=== PATIENT | male | born 1950 | race Caucasian/White ===

== ENCOUNTER 2018-07-02 13:15 | Inpatient (IN) | payer OTHER ==
[~2018-07-02] VITALS: Ht 185.4 cm; Wt 67.6 kg
[2018-07-02] MEDS ORDERED: APAP650 PO (14:37)
[2018-07-02] MEDS ORDERED: ZYLOPRIM300 MG PO (14:37)
[2018-07-02] MEDS ORDERED: COREG25 MG PO (14:38)
[2018-07-02] MEDS ORDERED: ASPIR 8181 MG PO (14:38)
[2018-07-02] MEDS ORDERED: CLOPIDOGREL75 MG PO (14:39)
[2018-07-02] MEDS ORDERED: VITAMIN D2000 UNIT PO (14:39)
[2018-07-02] MEDS ORDERED: GABAPENTIN 100100 MG PO (14:41)
[2018-07-02] MEDS ORDERED: CLOTRIMAZOLE 1%15 G1 TOP (14:41)
[2018-07-02] MEDS ORDERED: PROBIOTIC1 EAC1 PO (14:42)
[2018-07-02] MEDS ORDERED: SYNTHROID75 MCG PO (14:43)
[2018-07-02] MEDS ORDERED: MIRALAX17 GM PO (14:44)
[2018-07-02] MEDS ORDERED: POTASSIUM20 PO (14:47)
[2018-07-02] MEDS ORDERED: PRAVACHOL20 MG PO (14:51)
[2018-07-02] MEDS ORDERED: PSYLLIUM HUSK1 GM PO (15:01)
[2018-07-02] MEDS ORDERED: ALDACTONE100 MG PO (15:02)
--- NOTE | 2018-07-02 18:55 | NUR ---
PATIENT ALERT AND ORIENTED ARRIVED [facility] UN[facility] HERE FOR [facility].
[2018-07-02 20:10] VITALS: BP 122/60
--- NOTE | 2018-07-03 02:55 | NUR ---
ASSUMED CARE @ 1914-07/02-THURSDAY.AWAKE IN BED W/ HOB UP.JUST FINISHED DINNER @ THIS TIME.DAUGHTER VISITING.WEARING PREVALON BOOT LEFT FOOT @ 1914.BED ALARM PUT ON @ 1914.NO DRSG ON RIGHT AKA STUMP W/ KERLINE ON & DRY.PATIENT CLAIMS DRSG REMOVED BEFORE TRANSFER TO REHAB.USUALLY APPLIES DRSG IN AM.ALSO CLAIMS DOES NOT USE STUMP TAX MANAGER PUBLIC @ NIGHT.WANTS BATHROOM LIGHT ON ALL NIGHT.DEPENDS OFF @ 2014.TEMP @ ORAL.TEMP RE-CHECKED @ .1 ORAL.ON HOURLY ROUNDS.TURNED Q 2 HOURS.AWAKENED TO TURN.
[2018-07-03 04:50] LABS: HEMATOCRIT 27.6 % (42.0-52.0); HEMOGLOBIN 8.9 gm/dL (14.0-18.0); MCH 32.2 pg (26.0-34.0); MCV 100.5 fL (80.0-100.0); MPV 10.7 fl. (7.2-11.1); NUCLEATED RBCS 0 /100WBC; PLATELET COUNT* 229 thou/uL (150-400); RBC 2.75 mil/uL (4.50-6.00); WBC 11.1 thou/uL (4.0-11.0)
--- NOTE | 2018-07-03 05:13 | NUR ---
SLEPT LATE SINCE 2300 & SLEPT GOOD ALL NIGHT.AWAKENED ONLY TO TURN & TO CLEAN IF INC URINE OR INC BM.TOOK ALL ONE PACKAGE GARCIA CRACKERS W/ DIET AILYN MIST HS SNACKS.PHOTO TAKEN COCCYX,DRY SCABS-UPPER,MIDDLE & LOWER PARTS LEFT INNER LEG @ 4324.
[2018-07-03 05:37] LABS: ALBUMIN 2.2 g/dL (3.4-5.0); CALCIUM 8.6 mg/dL (8.5-10.1); CREATININE 0.8 mg/dL (0.6-1.3); POTASSIUM 3.7 mmol/L (3.5-5.1); TOTAL BILIRUBIN 0.4 mg/dL (<0.1-1.0); TOTAL PROTEIN 7.1 g/dL (6.4-8.2)
--- NOTE | 2018-07-03 06:25 | NUR ---
USED URINAL X4.NURSE EMPTIES URINAL @ NIGHT.URINE ACCIDENT X2.INC URINE X1. USED BEDPAN X1-NO BM.INC.BM X6.BOWEL ACCIDENT X4.FOR 07/03-LARGE BM X1/MOD BM X1 & SMALL BM X1.BAYLEE CARE DONE AFTER EACH INC URINE BM X6.FOLLOWED BY MOISTURE BARRIER CREAM TO PINK GROINS,POST.SCROTUM,LEFT BUTTOCK & BAYLEE-RECTAL AREAS X6.
[2018-07-03 06:27] LABS: ABSOLUTE BASOPHILS 0.2 thou/uL (0.0-0.2); ABSOLUTE EOSINOPHILS 0.3 thou/uL (0.0-0.7); ABSOLUTE LYMPHOCYTES 1.8 thou/uL (0.8-5.3); ABSOLUTE MONOCYTES 0.3 thou/uL (0.0-1.2); ABSOLUTE NEUTROPHILS 8.4 thou/uL (1.6-8.1); ANISOCYTOSIS 1+; ATYPICAL LYMPHS 1 %; METAMYELOCYTES 4 %; MYELOCYTES 1 %; PLATELET ESTIMATE ADEQUATE
[2018-07-03 07:54] VITALS: BP 121/66
--- NOTE | 2018-07-03 18:02 | NUR ---
AM ASSESSMENT AND VITAL SIGNS COMPLETED DOCUMENTED. PT HAS BEEN PLEASANT AND COOPERATIVE, WORKED WITH OT, PT AND ST TODAY. PT IS ABLE TO TRANSFER WITH ASSIST OF ONE AND USE OF HIS LEFT LEG. DR CONTRERAS REMOVED THE KERLINE FROM THE RIGHT STUMP AND STUMP SPIRITUAL MINISTER IS IN PLACE. FALL PRECAUTIONS AND HOURLY ROUNDING CONTINUE.
[2018-07-03 20:05] VITALS: BP 119/59
--- NOTE | 2018-07-04 05:19 | NUR ---
ASSUMED PT CARE AT 1930. PT ALERT AND ORIENTED X4, POLITE AND COOPERATIVE WITH CARES. PT SITTING UP IN RECLINER AT SHIFT CHANGE. TRANSFERRED TO BED WITH GAIT BELT AND STAND/PIVOT. PT IS POST R AKA. DENIES PAIN. DRESSING TO R STUMP C/D/I. STUMP VIBRATORY PILE DRIVER IN PLACE. PREVALON BOOT IN PLACE TO LEFT FOOT. PT INCONTINENT OF BOWEL AND BLADDER MANY TIMES OVERNIGHT. STAFF PERFORMED PERICARES, BARRIER CREAM APPLIED TO REDNESS IN BAYLEE AREA. PT TURNED Q2. CALL LIGHT AND FREQUENTLY USED ITEMS WITHIN REACH. BED ALARM ON FOR SAFETY. HOURLY ROUNDING IN PROGRESS, WILL CONTINUE TO MONITOR.
[2018-07-04 07:35] VITALS: BP 107/55
--- NOTE | 2018-07-04 18:13 | NUR ---
PT SLEPT LATE THIS MORNING AND CONTINUED TO BE INCONTINENT OF BOWEL AND BLADDER WHILE SLEEPING. PT TRANSFERRED FROM BED TO WHEELCHAIR WITH GAIT BELT AND MOD ASSIST, NEEDS TO BE TRAINED TO USE SLIDEBOARD FOR SAFETY. PT HAS BEEN PLEASANT AND COOPERATIVE, FRIENDS AND FAMILY HAVE VISITED. PT DENIES PAIN OR DISCOMFORT. FALL PRECAUTIONS AND HOURLY ROUNDING CONTINUE.
[2018-07-04 19:51] VITALS: BP 121/61
--- NOTE | 2018-07-05 02:30 | NUR ---
ASSUMED CARE @ 1923-07/04-THURSDAY.SITS IN W/C WATCHING TV.RIGHT STUMP W/ 4 X 4 GAUZE DRSG.WANTS BATHROOM LIGHT ON ALL NIGHT.TRANSFERED TO BED BY POULTRY VACCINATOR @ 1939. HOB UP.BED ALARM PUT ON @ 1939.LEFT LEG & FOOT- DRY & SCALY.POULTRY VACCINATOR APPLIED MOISTURE Barrier CREAM.WBAT LEFT LE DURING TRANSFER.PREVALON BOOT APPLIED TO LEFT FOOT @ 2119.AWAKENED TO TURN @ 2200,0000 & 0200.ALSO TO CHECK IF INC. URINE & STOOLS DURING TURNING TIMES.GOES BACK TO SLEEP.ON HOURLY ROUNDS.POULTRY VACCINATOR DOING ODD HOUR ROUNDS.
--- NOTE | 2018-07-05 05:24 | NUR ---
SLEPT EARLY SINCE 2044 & SLEEPING GOOD ALL NIGHT.TOOK ALL DIET AILYN MIST HS SNACK.AWAKENED ONLY TO TURN & TO CHECK IF INC URINE & STOOLS.USED URINAL X1.NURSE EMPTIES URINAL.INC URINE X4 W/ URINE ACCIDENTS X4.INC BM X2-SMEAR X1 & SMALL X1.BOWEL ACCIDENT X1.DRY @ 0200-NO URINE & BOWEL INC.BAYLEE CARE DONE X4 AFTER EACH EPISODE OF URINE & BOWEL INC.FOLLOWED W/ MOISTURE BARRIER CREAM TO PINK LEFT BUTTOCK,COCCYX,GROINS & POST.SCROTUM X 4.
[2018-07-05 06:24] VITALS: BP 108/64
--- NOTE | 2018-07-05 06:47 | NUR ---
BP @ 0624-108/64.COREG HELD.
[2018-07-05 07:46] VITALS: BP 117/58
--- NOTE | 2018-07-05 12:26 | NUR ---
Nutrition: Consult for new rehab pt. Pt is thin, BMI 18.3. Admitted s/p Rt AKA. wt: 138#. CHO controlled diet. LLE is scaley and dry. H/o DM, cirrhosis, HTN, afib. Albumin 2.2, prealbumin 23.6. RD will order Glucerna supplement for added protein and kcals. Consider Mild to moderate risk at this time. Will follow up on po intake, supplement intake, wt, labs 07/07/18.
--- NOTE | 2018-07-05 16:15 | NUR ---
SW met with pt to complete initial assessment, introduce self, and SW role. Pt alert, oriented but was not exceptionally clear in answering questions. pt lives at home with his son. SW to call son to follow up as well on specifics of if pt son works and how busy he is. Pt has 2 dtrs. Pt has wc, RW, cane, and hx of HH. SW to continue to follow to assist with safe dc planning.
--- NOTE | 2018-07-05 17:33 | NUR ---
ASSUMMED CARE OF PT AT 0730, PT ALERT AND OREINTED, PT TRANSFERS WITH ASSIST OF 1 GB WITH A SLIDE/PIVOT TRANSFER. BM X1 ON TOILET THIS SHIFT, SCAB AREA ON LEFT LEG INTACT, PT DID HAVE SLIGHT BLOODY NOSE X 1 THIS SHIFT, INCISION TO RIGHT STUMP INTACT AND HEALING, STUMP SMASH HAND ON, PT DENIES PAIN, SCABBED AREA ON LEFT LEG INTACT, SLIGHT REDNESS TO LEFT BUTTOCK, BARRIER OINTMENT APPLIED, REPOSTIONED EVERY 2 HOURS IN CHAIR, STOOD WITH THERAPY, VOIDS PER URINAL, BRIEF ON FOR INCONTINENCE BUT NO INCONTINENCE NOTED THIS SHIFT, PT PARTICIPATED IN ALL THERAPIES, HOURLY ROUNDING COMPLETED, ASSESSMENT COMPLETE, WILL CONTINUE TO MONITOR.
[2018-07-05 20:00] VITALS: BP 135/60
--- NOTE | 2018-07-06 00:54 | NUR ---
ASSUMED CARE AT 1930. PATIENT IN W/C UNTIL AFTER VISITORS LEFT. UP WITH TWO FOR SAFETY, GAIT BELT, SLIDES FROM W/C TO BED. INCONTINENT OF URINE, BUT WAS ABLE TO VOID PER URINAL ONCE DURING POSITION CHANGE. LINENS CHANGED BY NURSE. THOUGHT HE NEEDED TO HAVE BM, BUT AFTER VOIDING STATED HE NO LONGER NEEDED TO HAVE BM. TAKES PILLS WHOLE WITH WATER. INCISION C/D/I. STUMP MARKETING TECHNOLOGY SPECIALIST INTACT. PILLOW BOOT TO LT LEG. BARRIER OINTMENT TO BUTTOCKS. LOTION AND MEDICINE TO LLE. NO C/O PAIN. HOURLY ROUNDS CONTINUE. BED ALARM ON. CALL LITE IN REACH.
--- NOTE | 2018-07-06 05:42 | NUR ---
SLEPT AFTER HS EXCEPT WHEN AWAKENED FOR TURNS AND OFFERING URINAL. WAS CONTINENT AT 0000, 0200, AND 0400. OFFERED URINAL BEFORE TURNING. NO C/O PAIN. TURNED Q2H. STUMP EDUCATIONAL PSYCHOLOGY PROFESSOR INTACT, INCISION C/D/I. HOURLY ROUNDS CONTINUE. BED ALARM ON. CALL LITE IN REACH.
[2018-07-06 06:21] VITALS: BP 109/54
[2018-07-06 08:00] VITALS: BP 105/59
--- NOTE | 2018-07-06 16:05 | NUR ---
ASSUMMED CARE OF PT AT 0730, PT ALERT AND ORIENTED, TRANSFERS WITH ASSIST OF 1, GB WITH A SLIDE SITTING PIVOT, TAKING FOOD AND FLUIDS WELL, HAD SEVERAL SMALL/MODERATE NOSEBLEEDS THIS AM, ICE PACK APPLIED, PHYSICIAN INFORMED , MEDICATION ORDERED AND SPRAY INSERTED INTO NON BLEEDING NOSTRIL, STOPPED NOSEBLEED AND NO FURTHER BLEEDING THIS SHIFT, INCISION TO RIGHT STUMP C/D/I, STUMP END FINDER FORMING DEPARTMENT ON, DENIES PAIN, HEALING ULCERS SCABS ON LEFT LEG, DRY SKIN, OINTMENT APPLIED, VOIDS PER URINAL/TOILET, NO STOOLS THIS SHIFT,HAD MEALS IN DININGROOM, PARTICIPATED IN ALL THERAPIES, HOURLY ROUNDING COMPLETED, ASSESSMENT COMPLETE, WILL CONTINUE TO MONITOR.
[2018-07-06 21:15] VITALS: BP 127/46
--- NOTE | 2018-07-06 21:30 | NUR ---
SITTING UP IN BED WATCHING TV. EARLIER TRANSFERRED FROM WHEELCHAIR TO BED WITH MODERATE ASSIST OF ONE, JOSE EDUARDO GARCÍA. PATIENT SCOOTS. HAD BROWN DIARRHEA WITH VISIBLE CARROTS. DID OWN HYGIENE. REQUIRES ASSIST WITH PANTS. DENIES DISCOMFORT. TOOK MEDICATION WHOLE WITH WATER.
--- NOTE | 2018-07-07 05:33 | NUR ---
INCONTINENT OF SMALL SOFT BM AND URINE X ONE DURING THE NIGHT REQUIRING A TOTAL BED CHANGE. ALSO USED THE URINAL DURING THE NIGHT. ASSISTED WITH REPOSITIONING. HOURLY ROUNDING IN PROGRESS.
[2018-07-07 09:41] VITALS: BP 122/54
--- NOTE | 2018-07-07 13:21 | NUR ---
Nutrition: No significant changes. Pt easting well, labs ok, +BM. Will continue to follow weekly. Low risk.
--- NOTE | 2018-07-07 13:59 | NUR ---
SW met with pt and pt to review team conference summary and plan for pt to remain on rehab unit at least another week with team to reassess pt length of stay during team conference next Friday 07/14. Possible dc date to be known during next team conference. SW to continue to follow to assist with safe dc planning.
--- NOTE | 2018-07-07 14:01 | NUR ---
SW met with pt to review team conference summary and plan for pt to remain on rehab unit and team to reassess pt length of stay during team conference next Friday 07/14. SW to speak with pt son to provide update as well. SW to continue to follow to assist with safe dc planning.
--- NOTE | 2018-07-07 17:46 | NUR ---
PATIENT ALERT AND ORIENTED X 4, MAKES NEEDS KNOWN. DENIES COMPLAINTS OF PAIN OR DISCOMFORT. UP IN WHEELCHAIR, TRANSFERS WITH ASSIST OF ONE. TWO FOR SAFETY. TRANSFERS TO TOILET WITH ASSIST OF ONE. CONT. WITH CURRENT PLAN OF CARE.
[2018-07-07 20:00] VITALS: BP 122/59
--- NOTE | 2018-07-07 23:58 | NUR ---
ASSUMED CARE AT 1930. PATIENT IN W/C UNTIL AROUND 2030. UP TO VOID AND HAVE BM PER TOILET BEFORE BED. UP WITH TWO NURSES. PATIENT SCOOTED FROM W/C TO TOILET, BUT NEEDED MAX LIFTING ASSIST TO RISE ENOUGH FOR SECOND NURSE DO TO CLOTHING ADJUSTMENTS. PULLUPS REMOVED AT HS. TO BED BY SCOOTING FROM W/C TO BED, ABLE TO POSITION SELF IN BED. PRAFO BOOT APPLIED AT TO LT HEEL. STUMP SHIPYARD LABORER IN PLACE, INCISION C/D/I. TAKES PILLS WHOLE WITH WATER. DRINKS WATER THROUGH NIGHT. TURNED Q2H. URINAL OFFERED WITH TURNS. THUS FAR CONTINENT OF URINE. HOURLY ROUNDS CONTINUE. BED ALARM ON. CALL LITE IN REACH.
--- NOTE | 2018-07-08 04:56 | NUR ---
SLEPT MOST OF THE NIGHT AND WAS AWAKENED FOR TURNS AND ENCOURAGING USE OF URINAL. INCONTINENT ONCE OF BOWEL AND BLADDER ONCE THUS FAR THIS SHIFT. STOOL GOT ONTO THE STRAP FOR THE STUMP CROSSING SUPERVISOR. THIS NURSE WASHED THE STRAP AND IT IS DRYING IN ROOM. NO C/O PAIN. ABLE TO TURN SELF WITHOUT DIFF. LT FOOT STILL IN PRA BOOT. DRINKS WATER REGULARILY THROUGH NIGHT. HOURLY ROUNDS CONTINUE. BED ALARM ON. CALL LITE IN REACH.
[2018-07-08 06:22] VITALS: BP 104/48
[2018-07-08 10:54] VITALS: BP 89/46
--- NOTE | 2018-07-08 18:19 | NUR ---
TRANSFERS TO TOILET WITH ASSIST OF ONE. UP IN WHEELCHAIR MOST OF THE DAY. CONT. PT/OT/ST. DENIES PAIN OR DISCOMFORT. NO SIGN OF DISTRESS.
[2018-07-08 20:00] VITALS: BP 113/55
--- NOTE | 2018-07-09 05:37 | NUR ---
ASSUMED CARE AT 1920. ALERT AND ORIENTED. PLEASANT. RIGHT AKA. INCISION HEALING WITH STUMP STOCK HANDLER IN PLACE. DENIED ANY PAIN. LEFT PRAFO BOOT WHEN IN BED. MIN ASSIST WITH GAIT BELT AND W/C. PT TRANSFERS SELF. DID HAVE 1 STOOL INCONTINENCE AND USED BEDPAN X 1. DID HAVE LIQUID STOOL. RN ASSISTED WITH CARES. RN ASSISTED WITH USE OF URINAL. SLEPT OFF AND ON. CALL LIGHT IN REACH AND BED ALARM ON.
[2018-07-09 07:45] VITALS: BP 109/54
--- NOTE | 2018-07-09 15:01 | NUR ---
ASSUMED CARE AT 0730. ALERT ORIENTED PLEASANT COOPERATIVE. HX OF RAKA. WEARS STUMP EDUCATION DIRECTOR INCISION HEALING. TRANSFERS WITH SBA G BELT FROM BED TO W/C AND TO TOILET USES DROP ARM COMMODE SQUAT PIVOT. NEEDS SOME ASSIST WITH CLOTHING ADJUSTMENTS. ABLE TO DO HYGEINE HIMSELF WEARS PULLUPS. PARTICIPATING IN THERAPIES THROUGHOUT THE DAY. DENIES PAIN OR CONCERNS. APPETITE GOOD FEEDS SELF TAKES MEDS WITHOUT DIFFICULTY. USES CALL LIGHT APPROPRIATELY FOR ASSIST. RESTING IN BED AT 1500 ON RT. SIDE.
[2018-07-09 16:37] VITALS: BP 128/61
[2018-07-09 20:00] VITALS: BP 122/51
--- NOTE | 2018-07-10 05:59 | NUR ---
ASSUMED CARE AT 1920. ALERT AND ORIENTED. PLEASANT. DENIED ANY PAIN. MIN ASSIST WITH GAIT BELT AND W/C. LEFT PRAFO BOOT WHEN IN BED. DID HAVE URINARY INCONTINENCE X 3 BUT ALSO USED URINAL. SLEPT BETTER. CALL LIGHT IN REACH AND BED ALARM ON.
[2018-07-10 10:30] VITALS: BP 113/52
--- NOTE | 2018-07-10 18:01 | NUR ---
PATIENT ALERT AND ORIENTED X 4, UP WITH ASSIST TO WHEELCHAIR. TRANSFER TO TOILET WITH ASSIST OF ONE. USES UPPER BODY TO TRANSFERS. BM X 2. INCONT. X ONE. DENIES PAIN OR DISCOMFORT. NO SIGN OF DISTRESS.
[2018-07-10 20:00] VITALS: BP 105/51
--- NOTE | 2018-07-11 05:25 | NUR ---
ASSUMED PT CARE AT 1930. PT SITTING UP IN WHEELCHAIR WATCHING TELEVISION. ALERT AND ORIENTED X4, POLITE AND COOPERATIVE WITH CARES. HX OF RAKA. STUMP NEIGHBORHOOD COORDINATOR IN PLACE. DENIES PAIN. TRANSFERRED TO BED WITH MIN ASSIST, GAIT BELT AND WHEELCHAIR. LEFT PRAFO BOOT ON WHEN IN BED. URINARY INCONTINENCE X3. PT ALSO USED URINAL ONCE. NO STOOL THIS SHIFT. TURNED Q2 OVERNIGHT. CALL LIGHT WITHIN REACH. HOURLY ROUNDING IN PROGRESS, WILL CONTINUE TO MONITOR.
[2018-07-11 05:28] LABS: ALBUMIN 2.2 g/dL (3.4-5.0); CALCIUM 8.2 mg/dL (8.5-10.1); CREATININE 0.8 mg/dL (0.6-1.3); MAGNESIUM 1.8 mg/dL (1.8-2.4); TOTAL BILIRUBIN 0.4 mg/dL (<0.1-1.0); TOTAL PROTEIN 6.8 g/dL (6.4-8.2)
[2018-07-11 06:00] LABS: POTASSIUM 2.2 mmol/L (3.5-5.1)
[2018-07-11 07:20] VITALS: BP 100/54
--- NOTE | 2018-07-11 16:51 | NUR ---
ASSUMMED CARE OF PT AT 0730, PT ALERT AND ORIENTED, PT TRANSFERS WITH ASSIST OF 1, GB PT LIFTS HIMSELF AND MOVES TO CHAIR/TOILET, INCISION TO RIGHT STUMP HEALED, STUMP ACCOUNTING ASSISTANT INTACT, PT REFUSED BATH BUT DID DO GROOMING SITTING IN W/C AT SINK AND DID GET DRESSED, INDEPENDENT WITH UPPER DRESSING, NEEDS ASSIST TO ADJUST SHORTS UP, K+ LOW AND REPLACEMENT PROTOCAL GIVEN, PHYSICIAN ALSO INCREASED DAILY DOSAGE OF K+, PT HAS RECHECK OF LABS IN AM, PT TAKING FOOD AND FLUIDS WELL, DENIES PAIN, FAMILY VISITING THRU OUT DAY, PT UP IN CHAIR ALL SHIFT, REPOSTIONED IN CHAIR, WAFFLE CUSHION IN CHAIR, TO TOILET FOR BM X 2 THIS SHIFT, VOIDS PER URIANL/TOILET, HOURLY ROUNDING COMPLETED, ASSESSMENT COMPLETE WILL CONTINUE TO MONITOR.
[2018-07-11 19:28] VITALS: BP 111/53
--- NOTE | 2018-07-11 19:30 | NUR ---
SITTING UP IN W/C WATCHING TV. DENIES DISCOMFORT. RIGHT STUMP WILDLIFE CONSERVATION OFFICER IN PLACE. DECLINED OFFER OF A SNACK.
[2018-07-12 04:34] LABS: CALCIUM 8.2 mg/dL (8.5-10.1); MAGNESIUM 1.5 mg/dL (1.8-2.4)
[2018-07-12 05:02] LABS: POTASSIUM 3.2 mmol/L (3.5-5.1)
--- NOTE | 2018-07-12 05:55 | NUR ---
RESTED QUIETLY. INCONTINENT OF SMALL AMOUNT OF SOFT BM X 2. BAYLEE CARE GIVEN. MOISTURE BARRIER APPLIED TO BUTTOCKS. ABLE TO TURN SELF. ENCOURAGED PATIENT TO TURN BUT ONLY LIKES TO BE ON HIS BACK AND LEFT SIDE. PATIENT'S LOW K+ REPLACED THIS AM PER ELECTROLYTE PROTOCOL. HOURLY ROUNDING IN PROGRESS.
[2018-07-12 07:45] VITALS: BP 100/39
--- NOTE | 2018-07-12 13:17 | NUR ---
ASSUMED CARE AT 0730. ALERT ORIENTED PLEASANT COOPERATIVE. HX OF R BEAU WEARS STUMP MERCHANDISE ADJUSTMENT CLERK WITH WAIST STRAP. HAS HAD 2 SOFT UNFORMED BMS IN TOILET. ABLE TO DO HYGEINE BUT NEEDS ASSIST OF CLOTHING AFTER TOILET USE. WEARS PULLUPS HAS INCONTINENCE URINE AT TIMES. PARTICIPATING IN THERAPIES THROUGHOUT THE DAY. TRANSFERS WITH SBA G BELT FROM BED TO W/C SQUAT PIVOT. DENIES PAIN OR REQUESTS. APPETITE GOOD FEEDS SELF TAKES MEDS WITHOUT DIFFICULTY. USES CALL LIGHT APPROPRIATELY FOR ASSIST. SKIN L LEG VERY DRY CLOTRAMAZOLE APPLIED LIBERALLY.
[2018-07-12 16:55] VITALS: BP 118/67
[2018-07-12 20:00] VITALS: BP 113/61
--- NOTE | 2018-07-13 05:17 | NUR ---
ASSUMED PT CARE AT 1930. PT ALERT AND ORIENTED X4, PLEASANT AND COOPERATIVE WITH CARES. PT SITTING UP IN WHEECHAIR WATCHING TELEVISION AT SHIFT CHANGE. TAKES PILLS WITH WATER WITHOUT DIFFICULTY. HX OF R BEAU WEARS STUMP STRETCH MACHINE OPERATOR. PT TRANSFERRED FROM WHEELCHAIR TO BED WITH SBA, GAIT BELT AND SQUAT PIVOT. PT NEEDED HELP GETTING HIS SHORTS OFF, WANTED TO SLEEP IN GOWN AND PULLUP. PT VOIDED INDEPENDENTLY SEVERAL TIMES PER URINAL, RN EMPTIED. NO STOOL THIS SHIFT. LEFT PRAFO BOOT ON AT HS. DENIES PAIN OR REQUEST. USES CALL LIGHT APPROPRIATELY. CALL LIGHT AND FREQUENTLY USED ITEMS WITHIN REACH, HOURLY ROUNDING IN PROGRESS, WILL CONTINUE TO MONITOR.
[2018-07-13 08:00] VITALS: BP 119/71
--- NOTE | 2018-07-13 15:31 | NUR ---
SW met with pt and called pt son in preparation for team conference tomorrow. No concerns presented; pt son feels that pt is making progress in therapies. SW to continue to follow to assist with safe dc planning.
--- NOTE | 2018-07-13 16:23 | NUR ---
PT CARE ASSUMED THIS AM, ASSESSMENT AND VITAL SIGNS COMPLETED DOCUMENTED. PT IS PLEASANT AND COOPERATIVE, PARTICIPATES DURING THERAPIES AND INTERACTS WELL WITH OTHERS DURING MEAL TIME. PT HAD LOOSE STOOLS THIS AM AFTER EATING SUGAR FREE CANDY, TRANSFERS FROM WC TO TOILET WITH SQUAT PIVOT AND REQUIRES ASSISTANCE WITH HIS CLOTHING. HOURLY ROUNDING AND FALL PRECAUTIONS IN PLACE.
[2018-07-13 19:44] VITALS: BP 121/68
--- NOTE | 2018-07-14 01:15 | NUR ---
ASSUMED CARE @ 1939-07/13-.SITS IN W/C @ BEDSIDE WATCHING TV.STUMP CRIME SCENE EVIDENCE TECHNICIAN IN PLACE RIGHT AKA STUMP.PIVOT TRANSFER W/ ONE PERSON FROM W/C TO BED @ 1999. WBAT LEFT LE.BED ALARM PUT ON @ 1999.PREVALON BOOT APPLIED TO LEFT FOOT @ 2019.EDEMA-+1 PITTING LEFT LEG,LEFT ANKLE & LEFT FOOT.PULL UPS OFF @ HS. GROINS-RED MORE ON LEFT & BAYLEE RECTAL AREAS.CLOTRIMAZOLE CREAM APPLIED TO RED AREAS @ 2329.ON HOURLY ROUNDS.BOARDING KENNEL OR CATTERY OPERATOR DOING ODD HOUR ROUNDS.
[2018-07-14 05:03] LABS: HEMATOCRIT 30.8 % (42.0-52.0); MCH 31.9 pg (26.0-34.0); MCHC 32.6 g/dL (28.0-37.0); MCV 97.9 fL (80.0-100.0); MPV 9.9 fl. (7.2-11.1); RBC 3.15 mil/uL (4.50-6.00); RDW-CV 16.9 % (10.5-14.5); WBC 11.6 thou/uL (4.0-11.0)
[2018-07-14 05:22] LABS: ALBUMIN 2.6 g/dL (3.4-5.0); CALCIUM 9.2 mg/dL (8.5-10.1); MAGNESIUM 1.8 mg/dL (1.8-2.4); POTASSIUM 3.9 mmol/L (3.5-5.1); TOTAL BILIRUBIN 0.4 mg/dL (<0.1-1.0); TOTAL PROTEIN 7.8 g/dL (6.4-8.2)
--- NOTE | 2018-07-14 06:52 | NUR ---
SLEEPING SINCE 2200 & SLEPT GOOD ALL NIGHT.AWAKENED ONLY TO TURN & TO CHECK IF INC URINE & STOOLS.TOOK 2 ORANGE JUICE HS SNACKS.WEDGES USED FOR TURNING.INC URINE X1.USED URINAL W/ ASSIST X 3.URINE ACCIDENT X1.INC STOOLS X 4.BOWEL ACCIDENTS X 4.BAYLEE CARE X5 AFTER EACH EPISODE BOWEL INC X4 & URINE INC X 1.MOISTURE BARRIER CREAM APPLIED X 4 AFTER EACH BAYLEE CARE.TOWEL W/ PILLOW CASE APPLIED BETWEEN THIGHS TO ABSORB URINE & STOOLS.
[2018-07-14 08:00] VITALS: BP 124/62
--- NOTE | 2018-07-14 13:06 | NUR ---
SW met with pt and pt sister and pt brother in law to review team conference summary and plan for pt to remain on rehab unit for one more week at least to continue progress in therapies. Team to reassess pt length of stay during team conference next Thursday. Pt okay with plan. SW mentioned OT concern for pt to have BSC, pt says that he will have elevated toilets and grab bars in bathroom. SW mentioned that team discussed discovering if pt is allowed to let the stump become wet during showering. Pt and pt family understanding and did not have any questions or concerns at this time. SW to continue to follow to assist with safe dc planning.
--- NOTE | 2018-07-14 13:43 | NUR ---
Nutrition: follow up note. RD ordered Babar today for added protein intake d/t nonhealing wound on knee and gangrene. Will continue to follow weekly.
[2018-07-14 20:05] VITALS: BP 118/61
--- NOTE | 2018-07-14 20:05 | NUR ---
SITTING UP IN WHEELCHAIR WATCHING TV. DENIES DISCOMFORT. ORANGE JUICE PROVIDED PER REQUEST. WHEELED SELF TO THE TOILET AND SCOOTED FROM WHEELCHAIR TO THE STOOL RISER WITH GAITBELT AND STAND BY ASSIST. DID NEED HELP WITH PULLING PANTS DOWN. DID OWN BAYLEE CARE. HAD YELLOW/GREEN DIARRHEA. TRANSFERRED TO BED BY SCOOTING FROM WHEELCHAIR TO THE BED. PRAFO BOOT PLACED ON LEFT LEG. STUMP CARPET INSPECTOR TO RIGHT STUMP DRY/INTACT AND HELD IN PLACE WITH A VELCRO WAISTBAND. CALL LIGHT AND URINAL WITHIN REACH.
[2018-07-15 04:31] LABS: HEMATOCRIT 31.1 % (42.0-52.0); MCH 31.7 pg (26.0-34.0); MCHC 32.3 g/dL (28.0-37.0); MCV 98.2 fL (80.0-100.0); MPV 9.5 fl. (7.2-11.1); RBC 3.16 mil/uL (4.50-6.00); RDW-CV 17.3 % (10.5-14.5); WBC 11.6 thou/uL (4.0-11.0)
[2018-07-15 04:49] LABS: CALCIUM 8.7 mg/dL (8.5-10.1)
--- NOTE | 2018-07-15 05:20 | NUR ---
USED URINAL X 3 DURING THE NIGHT. INCONTINENT OF SMEAR X ONE. BAYLEE CARE GIVEN. MOISTURE BARRIER APPLIED. HOURLY ROUNDING IN PROGRESS.
[2018-07-15 07:23] VITALS: BP 109/57
--- NOTE | 2018-07-15 18:01 | NUR ---
PT HAS PARTICIPATED WITH THERAPIES AND CALLS FOR ASSIST WITH TRANSFERRS. PT ABLE TO TRANSFERR SELF WITH SBA TO TOILET,W/C AND BED USEING ARMS AND LT LEG.PT DENIES PAIN AND REMAINS ALERT AND ORIENTATED.PT IS CONTINENT OF B+B. PT EATS MEALS IN DINNINGROOM.
--- NOTE | 2018-07-15 19:45 | NUR ---
SITTING UP IN WHEELCHAIR WATCHING TV. IN GOOD SPIRITS. GRANDSON HERE EARLIER VISITING. DENIES DISCOMFORT. CALL LIGHT AND URINAL WITHIN REACH.
[2018-07-15 20:15] VITALS: BP 97/58
--- NOTE | 2018-07-16 04:32 | NUR ---
RESTED QUIETLY. INCONTINENT OF SMALL LOOSE STOOL X ONE. BAYLEE CARE GIVEN BY HIDE TRIMMER. USED URINAL DURING THE NIGHT. HOURLY ROUNDING IN PROGRESS.
[2018-07-16 07:00] VITALS: BP 112/63
--- NOTE | 2018-07-16 16:39 | NUR ---
ASSUMMED CARE OF PT AT 0730, PT ALERT AND ORIENTED, TRANSFERS WITH GB, SBA WITH PT LIFTING HIMSELF AND MOVING FROM BED TO CHAIR, PT DENIES PAIN, TAKING FOOD AND FLUIDS WELL, MANUEVERS WHEELCHAIR WIHTOUT DIFFICULTY, TAKING FOOD AND FLUIDS WELL, VOIDS PER URINAL/TOILET, BM X 1 THIS SHIFT, PARTICIPATED IN ALL THERAPIES, HOURLY ROUNDING COMPLETED, PT REPOSTIONED IN CHAIR EVERY 2 HOURS, HAD LUNCH IN DININGROOM, ASSESSMENT COMPLETE, WILL CONTINUE TO MONITOR.
[2018-07-16 20:01] VITALS: BP 115/66
[2018-07-17 05:08] LABS: HEMATOCRIT 30.2 % (42.0-52.0); HEMOGLOBIN 9.9 gm/dL (14.0-18.0); MCH 32.1 pg (26.0-34.0); MCHC 32.8 g/dL (28.0-37.0); MPV 9.9 fl. (7.2-11.1); RBC 3.08 mil/uL (4.50-6.00); RDW-CV 16.9 % (10.5-14.5); WBC 11.1 thou/uL (4.0-11.0)
[2018-07-17 06:05] LABS: ALBUMIN 2.6 g/dL (3.4-5.0); CALCIUM 8.4 mg/dL (8.5-10.1); CREATININE 0.9 mg/dL (0.6-1.3); MAGNESIUM 1.8 mg/dL (1.8-2.4); POTASSIUM 3.4 mmol/L (3.5-5.1); TOTAL BILIRUBIN 0.3 mg/dL (<0.1-1.0); TOTAL PROTEIN 7.3 g/dL (6.4-8.2)
--- NOTE | 2018-07-17 06:31 | NUR ---
pt continues progressing towards goals, up with standby assist for BRP, with use of walker and gait belt, pt medicated x1 for back and shoulder pain, remains at bedside and is attentive to pts needs, sleepaid needed for rest this shift, no s/s acute distress noted
--- NOTE | 2018-07-17 06:36 | NUR ---
this nurse assumes care of pt 07/16/18 at 1930, pt is alert and oriented x3, pleasant, pt takes initiative and is active in his care, pt states, I try to do as much as i can for myself, pt wheels himself to bathroom, is able to transfer with standby assist, provides own reinaldo care, needs minimal assistance removing clothing, pt transfers from wheelchair to bed with standby assistance, pt denies pain this shift, shows no s/s acute distress, continues progressing towards goals
[2018-07-17 08:03] VITALS: BP 113/69
--- NOTE | 2018-07-17 16:58 | NUR ---
ASSUMMED CARE OF PT AT 0730, PT ALERT AND ORIENTED, PT TRANSFERS WITH SBA GB, VOIDS PER TOILET/URINAL, BM X 2 THIS SHIFT, TAKING FOOD AND FLUIDS WELL, DENIES PAIN, ENCOURAGED PT TO REPOSITION IN WHEELCHAIR, PROPELS WHEELCHAIR TO DININGROOM, PARTICIPATED IN ALL THERAPIES, HOURLY ROUNDING COMPLETED ASSESSMENT COMPLETE, WILL CONTINUE TO MONITOR.
[2018-07-17 19:55] VITALS: BP 119/64
--- NOTE | 2018-07-18 05:02 | NUR ---
ASSUMED PT CARE AT 1930. PT ALERT AND ORIENTED X4, SITTING UP IN WHEELCHAIR VISITING WITH DAUGHTER. DENIES PAIN. PT DID OWN CLOTHING CHANGE INTO GOWN FOR NIGHT. TRANSFERS FROM WHEELCHAIR TO BED WITH SBA, GAITBELT AND SCOOTING. TURNED Q2 OVERNIGHT. PT USED URINAL WITH EACH TURN. NO STOOL THIS SHIFT. STUMP SEQUINS SLINGER ON OVERNIGHT. USES CALL LIGHT APPROPRIATELY. CALL LIGHT AND FREQUENTLY USED ITEMS WITHIN REACH. HOURLY ROUNDING IN PROGRESS, WILL CONTINUE TO MONITOR.
[2018-07-18 07:43] VITALS: BP 106/55
--- NOTE | 2018-07-18 18:23 | NUR ---
ASSUMMED CARE OF PT AT 0730, PT ALERT AND ORIENTED, PT TRANSFERS WITH GB AND SBA, PROPELS W/C WITHOUT DIFFICULTY, PROPELLED W/C INDEPENDENTLY TO DININGROOM FOR LUNCH AND DINNER, TAKING FOOD AND FLUIDS WELL, DENIES PAIN, VOIDS PER URINAL/TOILET, BM X 2, STUMP INCISION HEALED, STUMP BOILER ENGINEER IN PLACE, DID GROOMING SITIING IN CHAIR AT SINK, REFUSED BATH, LEG WOUNDS HEALING, SACRAL AREA REMAINS REDDENED, BARRIER OINTMENT APPLIED, HOURLY ROUNDING COMPLETE, ASSESSMENT COMPLETE, WILL CONTINUE TO MONITOR.
[2018-07-18 19:39] VITALS: BP 126/64
--- NOTE | 2018-07-19 05:15 | NUR ---
ASSUMED PT CARE AT 1930, PT ALERT AND ORIENTED X4. PT SITTING UP IN WHEELCHAIR WATCHING TELEVISION AT SHIFT CHANGE. PT TRANSFERS WITH GAIT BELT AND SBA. DENIES PAIN. STOOL X1 THIS SHIFT. VOIDED PER URINAL OVERNIGHT, STAFF EMPTIED. STUMP INCISION HEALED, CONSUMER ATTORNEY IN PLACE. WOUNDS TO LEFT LEG HEALING. REDNESS TO SACRAL AREA, BARRIER OINTMENT APPLIED. USES CALL LIGHT APPROPRIATELY. CALL LIGHT AND FREQUENTLY USED ITEMS WITHIN REACH. HOURLY ROUNDING IN PROGRESS, WILL CONTINUE TO MONITOR.
[2018-07-19 05:25] LABS: HEMATOCRIT 31.4 % (42.0-52.0); HEMOGLOBIN 10.4 gm/dL (14.0-18.0); MCH 32.5 pg (26.0-34.0); MCHC 33.1 g/dL (28.0-37.0); MCV 98.2 fL (80.0-100.0); MPV 9.5 fl. (7.2-11.1); NUCLEATED RBCS 0 /100WBC; PLATELET COUNT* 237 thou/uL (150-400); RDW-CV 16.9 % (10.5-14.5); WBC 9.4 thou/uL (4.0-11.0)
[2018-07-19 05:39] LABS: CALCIUM 8.8 mg/dL (8.5-10.1); CREATININE 0.9 mg/dL (0.6-1.3); MAGNESIUM 1.9 mg/dL (1.8-2.4); POTASSIUM 3.8 mmol/L (3.5-5.1)
[2018-07-19 05:44] LABS: % SATURATION 13 % (20-39); IRON 36 ug/dL (50-175)
[2018-07-19 05:53] LABS: ABSOLUTE EOSINOPHILS 0.1 thou/uL (0.0-0.7); ABSOLUTE LYMPHOCYTES 1.8 thou/uL (0.8-5.3); ABSOLUTE MONOCYTES 0.8 thou/uL (0.0-1.2); ABSOLUTE NEUTROPHILS 6.7 thou/uL (1.6-8.1); MYELOCYTES 1 %; PLATELET ESTIMATE ADEQUATE
[2018-07-19 05:54] LABS: ANISOCYTOSIS 1+; POIKILOCYTOSIS 1+
[2018-07-19 07:24] VITALS: BP 107/56
--- NOTE | 2018-07-19 16:18 | NUR ---
AM ASSESSMENT AND VITAL SIGNS COMPLETED DOCUMENTED. PT HAS BEEN PLEASANT AND COOPERATIVE, INTERACTS WELL WITH OTHERS AT MEAL TIMES. PT CONTINUES TO MAKE PROGRESS WITH HIS SELF CARE, TRANSFERS AND MOBILITY. 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 PT IS INDEPENDENT WITH WHEELCHAIR IN ROOM AND ON REHAB UNIT. FALL PRECAUTIONS AND HOURLY ROUNDING CONTINUE.
[2018-07-19 19:40] VITALS: BP 115/54
--- NOTE | 2018-07-19 19:40 | NUR ---
SITTING UP IN WHEELCHAIR WATCHING TV. DENIES DISCOMFORT. DECLINED OFFER OF A SNACK. SCOOTED FROM WHEELCHAIR TO BED WITH STANDBY ASSIST. ABLE TO PUT GOWN ON AND REMOVE SHIRT AND PANTS WITH SET UP. URINAL AND CALL LIGHT WITHIN REACH.
--- NOTE | 2018-07-20 05:30 | NUR ---
USED URINAL X 3. NO COMPLAINTS VOICED. HOURLY ROUNDING IN PROGRESS.
[2018-07-20 08:15] VITALS: BP 98/51
--- NOTE | 2018-07-20 15:46 | NUR ---
SW called pt son Natalio in preparation for team conference tomorrow. Pt son just was curious of how much longer pt will need inpt rehab therapies. Pt son questioned whether or not pt would receive prosthesis during time of inpt rehab and continue prosthesis training; CHIDI explained that usually pts go home and receive prosthesis and then may have OP or if needed, a referral could be sent to determine if pt could come back for prosthetic training. Pt son also wants to make sure that pt will have any equipment or modifications to the home prior to pt dc. SW to continue to follow to assist with safe dc planning.
--- NOTE | 2018-07-20 18:26 | NUR ---
PT CARE ASSUMED AT 0715, ASSESSMENT AND VITAL SIGNS COMPLETED DOCUMENTED. PT PLEASANT, COOPERATIVE AND CONTINUES TO PROGRESS TOWARD DISCHARGE GOALS. FALL PRECAUTIONS AND HOURLY ROUNDING CONTINUE.
[2018-07-20 19:00] VITALS: BP 97/64
--- NOTE | 2018-07-20 19:50 | NUR ---
SITTING UP IN WHEELCHAIR WATCHING TV. DENIES DISCOMFORT. ORANGE JUICE PROVIDED PER REQUEST. CALL LIGHT AND URINAL WITHIN REACH.
--- NOTE | 2018-07-21 05:43 | NUR ---
RESTED QUIETLY. USED URINAL DURING THE NIGHT. NO COMPLAINTS VOICED. HOURLY ROUNDING IN PROGRESS.
[2018-07-21 08:00] VITALS: BP 123/65
--- NOTE | 2018-07-21 13:28 | NUR ---
PATIENT UP IN WHEELCHAIR. PROPELLS SELF. TRANSFER TO TOILET WITH SUPERVISION. GOOD PO INTAKE, NO SIGN OF DISTRESS. CONT. WITH PLAN OF CARE
--- NOTE | 2018-07-21 16:15 | NUR ---
SW met with pt to review team conference summary with pt and plan for pt to remain on rehab unit one more week with plan to reteam next Thursday. SW discussed DME needs for shower bench and drop arm commode and [facility] involvement in providing DME and SW to follow up with [facility] about dc needs. CHIDI discussed with pt that pt dtr called and spoke with dc internet media planner about hospital bed; pt may not qualify for hospital bed and pt does not want hospital bed arranged. CHIDI discussed team's recommendation for someone to be with pt at all times; pt said that he does not foresee that being an option; pt son works nights and pt dtrs work during the day. CHIDI also addressed pt and pt family questions about follow up with [facility] and prosthesis, prosthetic training, etc and will discuss further with the [facility] to determine answers about follow up, etc. CHIDI will continue to follow to assist with safe dc planning and will call to update and discuss dc planning with pt family as well.
--- NOTE | 2018-07-21 16:28 | NUR ---
Patient has been up in wheelchair. Participating in therapies. Will cont on rehab unit. Denies pain. Dressed self this am. cont. with plan of care.
[2018-07-21 20:00] VITALS: BP 109/51
[2018-07-22 03:48] LABS: ABSOLUTE EOSINOPHILS 0.5 thou/uL (0.0-0.7); ABSOLUTE LYMPHOCYTES 1.3 thou/uL (0.8-5.3); ABSOLUTE MONOCYTES 1.5 thou/uL (0.0-1.2); ABSOLUTE NEUTROPHILS 7.3 thou/uL (1.6-8.1); BASOPHILS 0.5 %; EOSINOPHILS 4.8 %; HEMATOCRIT 30.5 % (42.0-52.0); HEMOGLOBIN 10.1 gm/dL (14.0-18.0); LYMPHOCYTES 11.9 %; MCH 32.5 pg (26.0-34.0); MCHC 33.2 g/dL (28.0-37.0); MCV 97.8 fL (80.0-100.0); MONOCYTES 13.7 %; MPV 9.7 fl. (7.2-11.1); NUCLEATED RBCS 0 /100WBC; PLATELET COUNT* 187 thou/uL (150-400); POLYS 69.1 %; RBC 3.12 mil/uL (4.50-6.00); RDW-CV 16.9 % (10.5-14.5); WBC 10.6 thou/uL (4.0-11.0)
[2018-07-22 04:00] LABS: CALCIUM 8.5 mg/dL (8.5-10.1); CREATININE 0.8 mg/dL (0.6-1.3); MAGNESIUM 1.9 mg/dL (1.8-2.4); POTASSIUM 3.5 mmol/L (3.5-5.1)
--- NOTE | 2018-07-22 05:22 | NUR ---
ASSUMED CARES AT 1920. ALERT AND ORIENTED. PLEASANT. DENIED ANY PAIN OR SOA. MIN ASSIST WITH GAIT BELT AND W/C. TRANSFERS SELF FROM W/C TO TOILET OR BED. WEARS PULLUPS. USED URINAL WHILE IN BED AND RN EMPTIED. SLEPT OFF AND ON. NO ISSUES OVERNIGHT. CALL LIGHT IN REACH AND BED ALARM ON.
--- NOTE | 2018-07-22 14:00 | NUR ---
PATIENT ALERT AND ORIENTED X 4, TRANSFERS WITH GAITBELT TO TOILET MIN ASSIST. PATIENT PROPRELLS SELF AROUND THE UNIT IN WHEELCHAIR. CONT. TO BE CONT. OF BOWEL AND BLADDER. NO COMPLAINTS OF PAIN OR DISCOMFORT.
--- NOTE | 2018-07-22 15:43 | NUR ---
SW called and spoke with pt son briefly to receive pt dtr Temi's phone number to return call about pt dtr concerns and dc planning. Temi phone number is [phone]. CHIDI called and spoke with [facility]in[facility] at [facility] prior to call with pt family and discussed [facility] to provide shower bench, drop arm 3 in 1 commode, RW, wc and [facility] to find out more about stump hydrology technician ordered already and Anesthesiologists' Assistant or [place] 07/02 and 07/07 and then will contact SW to provide more information and specifics on stump hydrology technician and plan for prosthesis, follow ups, etc; OT to OT dept ext will be arranged for OT DME as well. SW relayed information to pt dtr Temi and discussed recommendation for pt to have assistance and supervision at all times at home at dc. Temi said that the family would discuss their schedules and plan for what they could to support pt and also discussed HH services and possible in home private duty assistance options if needed. SW to continue to follow to assist with safe dc planning.
[2018-07-22 20:00] VITALS: BP 127/65
--- NOTE | 2018-07-23 05:00 | NUR ---
ASSUMED CARES AT 1920. ALERT AND ORIENTED. PLEASANT. DENIED ANY PAIN, SOA, DIZZINESS OR N/V. MIN ASSIST WITH GAIT BELT AND W/C WITH TRANSFERS. HAS PREVALON BOOT WHILE IN BED. STUMP PSYCHIATRIC SOCIAL WORKER IN PLACE. USES URINAL. SLEPT SOME. NO ISSUES OVERNIGHT. CALL LIGHT IN REACH AND BED ALARM ON.
[2018-07-23 08:25] VITALS: BP 125/59
--- NOTE | 2018-07-23 13:24 | NUR ---
ASSUMED CARE AT 0730. ALERT ORIENTED PLEASANT COOPERATIVE. HX OF R AKA, WEARS STUMP CARTOGRAPHY SUPERVISOR. DENIES PAIN OR REQUESTS. APPETITE GOOD FEEDS SELF. PARTICIPATING IN THERAPIES THROUGHOUT THE DAY. TRANSFERS WITH SBA G BELTFROM BED TO W/C. USES CALL LIGHT APPROPRIATELY FOR ASSIST. PROPELLS SELF IN W/C INDEPENDENTLY.
[2018-07-23 15:02] VITALS: BP 106/49
[2018-07-23 19:45] VITALS: BP 112/64
--- NOTE | 2018-07-24 02:07 | NUR ---
ASSUMED CARE AT 1930. PATIENT RESTED IN W/C UNTIL AROUND 1999 THEN TO TOILET FOR BM AND VOIDING. UP WITH SBA, GAIT BELT, SCOOTS FROM W/C TO TOILET, W/C TO BED. PRAFO BOOT APPLIED AT HS. STUMP COMPUTER TERMINAL OPERATOR ON RT AKA, WHICH IS RANJITH. TURNS SELF. TAKES PILLS WHOLE WITH WATER. VOIDS PER URINAL. DENIES PAIN. CALL LITE IN REACH. BED ALARM ON. HOURLY ROUNDS CONTINUE.
--- NOTE | 2018-07-24 05:34 | NUR ---
SLEPT ALL NIGHT EXCEPT TO VOID PER URINAL. TURNS SELF. STUMP WATERMELON INSPECTOR REMAINS INTACT. NO C/O PAIN. HOURLY ROUNDS CONTINUE. BED ALARM ON. CALL LITE IN REACH.
[2018-07-24 07:56] VITALS: BP 102/52
--- NOTE | 2018-07-24 16:12 | NUR ---
PT HAS PARTICIPATED WITH THERAPIES AND TRANSFERRS SELF WITH SBA USEING SQUAT PIVIOT TECHNIQUE. PT DENIES PAIN. PT IS CONTINENT OF B+B AMD ABLE TO CLEANSE SELF AND ADJUST CLOTHING.PT EATS MEALS IN DINNINGROOM AND ABLE TO WHEEL SELF TO AND FROM. PT REMAINS PLESANT ,ALERT AND ORIENTATED.
[2018-07-24 17:21] VITALS: BP 110/50
[2018-07-24 19:46] VITALS: BP 116/72
--- NOTE | 2018-07-25 01:25 | NUR ---
ASSUMED CARE @ -SAT.SITS IN W/C @ BEDSIDE WATCHING TV.PREVSALON BOOT LEFT FOOT PUT ON BY SHOE FOLDER @ 1999.HOB UP.BED ALARM PUT ON @ 1999.WANTS SIDERAILS X3 UP ONLY.URINAL W/IN REACH.NURSE EMPTIES URINAL @ NIGHT.ON HOURLY ROUNDS. SHOE FOLDER DOING ODD HOUR ROUNDS.
--- NOTE | 2018-07-25 07:50 | NUR ---
SLEEPING SINCE 2299.STUMP THREE DIMENSIONAL MAP MODELER IN PLACE RIGHT STUMP.TOOK ALL TUYET.PUDDING HS SNACK.BRP PER W/C X1.USED URINAL X2,
[2018-07-25 07:59] VITALS: BP 107/49
--- NOTE | 2018-07-25 16:47 | NUR ---
ASSUMMED CARE OF PT AT 0730, PT ALERT AND ORIENTED, TRANSFERS WITH SBA GB, UP IN WHEELCHAIR ALL SHIFT, REPOSITIONS HIMSELF IN CHAIR, DENIES PAIN, TAKING FOOD AND FLUIDS WELL, STUMP INCISION HEALED, STUMP CONSTRUCTION ESTIMATOR ON, REFUSED BATHING THIS AM, DID GROOMING SITTING IN WHEELCHAIR AT SINK, DRESSED INDEPENDENTLY, MANUEVERS WHEELCHAIR WELL TO DININGROOM, HOURLY ROUNDING COMPLETED, ASSESSMENT COMPLETE, WILL CONTINUE TO MONITOR.
[2018-07-25 19:41] VITALS: BP 118/53
--- NOTE | 2018-07-26 01:35 | NUR ---
ASSUMED CARE @ 1920-07/25-THURSDAY.SITS IN W/C @ BEDSIDE WATCHING TV.STUMP TICKET TAKER IN PLACE RT STUMP.HOB UP IN BED.WANTS ONLY SIDERAILS X3 UP.PREVALON BOOT APPLIED TO LEFT FOOT @ 2019.BED ALARM PUT ON @ 2019.WEARS PULL UPS. MEPILEX DRSG REMOVED FROM LEFT ELBOW & LEFT HAND.SMALL BAND AID REMOVED FROM LEFT FOREARM.ALL THREE AREAS-DRY.URINAL W/IN REACH.ON HOURLY ROUNDS.REFINER OPERATOR DOING ODD HOUR ROUNDS.
--- NOTE | 2018-07-26 05:19 | NUR ---
SLEEPING SINCE 2200 & SLEPT GOOD ALL NIGHT.REFUSED HS SNACK.INC URINE X1 OR URINE DRIBBLING X1./URINE ACCIDENT X1.USED URINAL X2.PICTURE TAKEN LEFT BUTTOCK @ 0.STUMP ELECTROMECHANIC WET W/ URINE & WASHED.PULL UPS OFF.NOTED RASHES OUTER PART LEFT LEG @ 0 -WILL ASK DR FOR TX.
--- NOTE | 2018-07-26 07:28 | NUR ---
BP @ 0600-103/60.COREG HELD.
[2018-07-26 07:56] VITALS: BP 104/46
--- NOTE | 2018-07-26 12:57 | NUR ---
ASSUMED CARE AT 0730. ALERT ORIENTED, PLEASANT COOPERATIVE. HX OF RAKA WEARS STUMP PATIENT ADVOCATE R STUMP. TRANSFERS WITH SBA G BELT FROM BED TO W/C AND TO TOILET USING DROP ARM COMMODE RISER. ABLE TO DO HYGEINE AND CLOTHING ADJUSTMENTS. HAD LARGE SOFT SEMIFORMED BM AND VOIDED WEARS PULLUPS FOR OCCASSIONAL INCONTINENCE URINE. DENIES PAIN OR CONCERNS. APPETITE GOOD FEEDS SELF. TAKES MEDS WITHOUT DIFFICULTY. PARTICIPATING IN THERAPIES.
[2018-07-26 15:35] VITALS: BP 112/54
[2018-07-26 20:00] VITALS: BP 107/48
--- NOTE | 2018-07-27 05:08 | NUR ---
ASSUMED PT CARE AT 1930. PT ALERT AND ORIENTED X4, POLITE AND COOPERATIVE WITH CARES. HX OF RIGHT AKA, STUMP GEOCHEMICAL MANAGER IN PLACE. TRANSFERS WITH SBA, GAIT BELT FROM WHEELCHAIR TO BED AND TO TOILET. DOES OWN HYGIENE AND CLOTHING ADJUSTMENTS. HAD LARGE LOOSE STOOL. USED URINAL OVERNIGHT X2. WEARS PULLUPS. PREVALON BOOT TO LEFT FOOT. USES CALL LIGHT APPROPRIATELY. HOURLY ROUNDING IN PROGRESS, WILL CONTINUE TO MONITOR.
[2018-07-27 07:00] VITALS: BP 97/47
--- NOTE | 2018-07-27 13:55 | NUR ---
SW called and spoke with pt dtr Temi in preparation for team conference tomorrow. Pt dtr reported that she and her brother and sister are still trying to work out a schedule to be able to have someone available with pt at all times. Pt dtr said she is waiting to hear from her employer about what she is able to manage with her schedule to be able to be away from work. Pt dtr picked up shower tub bench and commode. RW and wc and stump auditing clerk to be delivered to pt room in hospital prior to pt dc; SW to follow up on status of that DME. Pt dtr concerned for a dc soon due to her worry that pt is not quite strong enough. SW discussed HH services and pt dtr hopeful for continued therapies. SW to continue to follow to assist with safe dc planning.
[2018-07-27 15:47] VITALS: BP 108/54
--- NOTE | 2018-07-27 16:17 | NUR ---
ASSUMED CARE AT 0730. ALERT ORIENTED, PLEASANT COOPERATIVE. HX OF RAKA WEARS STUMP DRAIN TILER. DENIES PAIN OR REQUESTS. PARTICIPATING IN THERAPIES. TRANSFERS WITH SBA G BELT TO W/C AND TOILET. ABLE TO MANAGE CLOTHING ADJUSTMENTS AND HYGEINE. PROPELLS SELF IN W/C. APPETITE GOOD TO DR PER W/C FOR MEALS.
[2018-07-27 19:50] VITALS: BP 111/50
--- NOTE | 2018-07-27 19:50 | NUR ---
SITTING UP IN WHEELCHAIR WATCHING TV. DENIES DISCOMFORT. TRANSFERRED FROM W/C TO BED WITH SBA, GAITBELT, AND SCOOTS. CALL LIGHT AND URINAL WITHIN REACH.
--- NOTE | 2018-07-28 05:06 | NUR ---
RESTED QUIETLY. NO COMPLAINTS VOICED. USED URINAL DURING THE NIGHT. HOURLY ROUNDING IN PROGRESS.
[2018-07-28 08:00] VITALS: BP 110/56
--- NOTE | 2018-07-28 15:10 | NUR ---
PT CARE ASSUMED AT 0720, ASSESSMENT AND VITAL SIGNS COMPLETED DOCUMENTED. PT CONTINUES TO BE PLEASANT AND COOPERATIVE, WORKING TOWARD DISCHARGE GOALS. STUMP PARKING LINE PAINTER IN PLACE TO R AKA, A SMALLER STUMP PARKING LINE PAINTER IS ON ORDER FROM THE VA. FALL PRECAUTIONS AND HOURLY ROUNDING IN PLACE PER UNIT POLICY.
--- NOTE | 2018-07-28 17:08 | NUR ---
SW met with pt to review team conference summary and plan for pt to dc to son's home on Thursday with HH services to follow. SW met with pt and pt son and pt dtr later and reviewed team conference in more detail and discussed recommendations and safe dc planning for Thursday. Pt [facility] all needed DME from [facility] now and pt dtr still trying to confirm pt stump grease packer/protection to be ordered and delivered carolyn. Pt family continuing to ensure that pt will have assistance/supervision at all times with all tasks and then HH to continue to assess pt needs at home. Pt family concerned for pt med list at dc and to plan ahead as [facility] needs 3 days to coordinate, fill and provide needed meds. SW to continue to follow to assist with finalizing safe dc plan for Thursday 08/03.
[2018-07-28 20:00] VITALS: BP 105/52
--- NOTE | 2018-07-28 23:08 | NUR ---
ASSUMED CARE AT 1930. PATIENT IN W/C UNTIL AROUND 2044. UP TO TOILET, SCOOTS SELF FROM W/C TO TOILET. HAD BM, DOES OWN CARES. SBA FOR SCOOTING FROM W/C TO BED. HAS GOOD LLE STRENGTH. TAKES PILLS WHOLE WITH WATER. TURNS SELF. NO C/O PAIN. STUMP PHOTO GRAPHICS LIBRARIAN IN PLACE, CARES FOR IT HIMSELF. HOURLY ROUNDS CONTINUE. BED ALARM ON. CALL LITE IN REACH.
[2018-07-29 04:53] LABS: CALCIUM 8.9 mg/dL (8.5-10.1); CREATININE 0.7 mg/dL (0.6-1.3); POTASSIUM 3.7 mmol/L (3.5-5.1)
--- NOTE | 2018-07-29 05:34 | NUR ---
RESTED QUIETLY MOST OF THE NIGHT EXCEPT TO VOID. VOIDED PER URINAL. MOVES WELL IN BED. TURNS SELF. NO C/O PAIN. HOURLY ROUNDS CONTINUE. BED ALARM ON. CALL LITE IN REACH.
[2018-07-29 06:31] VITALS: BP 106/50
[2018-07-29 06:33] VITALS: BP 112/58
--- NOTE | 2018-07-29 15:58 | NUR ---
SW spoke with pt about dc planning for Thursday as pt was wondering about dc date again and SW confirmed with pt that date is Thursday; pt family aware of date. SW discussed pt DME from [facility] has been received by pt dtr and SW will make sure HH services are arranged. Pt discussed trying to work out car transfer practice with therapy and pt family. CHIDI called and spoke with Tempest at [facility] and discussed medications and Tempest explained that scripts can be faxed day of dc to [facility] fax [phone] and meds can actually be filled same day because of [facility] paying for inpt rehab, they will pay for meds same day; no need for 72 hours notice. SW faxed face sheet information to [facility] to check for HH benefits if they would be able to accept pt or not depends on if pt has Medicare or . SW to continue to follow to assist with safe dc planning.
--- NOTE | 2018-07-29 18:09 | NUR ---
PT REMAINS STABLE AND WITHOUT COMPLAINTS. PT HAS MADE GOOD PROGRESS AND HIS CHILDREN ARE MAKING PREPARATIONS IN ANTICIPATION OF HIS DISCHARGE THURSDAY. PT SELF PROPELS HIS WHEELCHAIR TO THE DINING ROOM FOR MEALS AND IS MOBILE IN HIS ROOM, SUPERVISION WITH ALL TRANSFERS. FALL PRECAUTIONS AND HOURLY ROUNDING CONTINUE.
[2018-07-29 20:04] VITALS: BP 129/64
--- NOTE | 2018-07-30 01:32 | NUR ---
ASSUMED CARE @ 1914-07/29-.SITS IN W/C @ BEDSIDE W/ LADY VISITOR.STUMP CUT FILER IN PLACE RIGHT STUMP.WBAT LEFT LE.SBA FOR TRANSFERS.PREVALON BOOT APPLIED TO LEFT FOOT @ 2099.BED ALARM PUT ON @ 2099.URINAL W/IN REACH.ON HOURLY ROUNDS.MORTGAGE LOAN CLOSER DOING ODD HOUR ROUNDS.
--- NOTE | 2018-07-30 05:15 | NUR ---
SLEEPING SINCE 2199 & SLEPT GOOD ALL NIGHT.REFUSED HS SNACK.BRP X1 PER W/C @ 2044.VOIDED & HAD BM.
[2018-07-30 11:18] VITALS: BP 127/47
--- NOTE | 2018-07-30 18:52 | NUR ---
ALERT AND ORIENTED X 4, TO MAIN DINNING AREA. PROPELLS SELF. DENIES PAIN OR DISCOMFORT.
[2018-07-30 19:15] VITALS: BP 99/43
--- NOTE | 2018-07-30 20:30 | NUR ---
SITTING UP IN WHEELCHAIR AND WATCHING TV. DENIES DISCOMFORT. DECLINED OFFER OF A SNACK. TRANSFERRED FROM W/C TO BED WITH SBA, GAITBELT, SCOOTS FROM W/C TO BED. URINAL AND CALL LIGHT WITHIN REACH. TOOK MEDICATIONS WHOLE WITH WATER.
--- NOTE | 2018-07-31 06:47 | NUR ---
SLEPT SOUNDLY. USED URINAL X ONE. NO COMPLAINTS VOICED. HOURLY ROUNDING IN PROGRESS.
[2018-07-31 08:00] VITALS: BP 110/55
--- NOTE | 2018-07-31 18:28 | NUR ---
PT A/O AND PLEASANT, COOPERATIVE STAFF AND INTERACTS WELL WITH THE OTHER PATIENTS DURING MEALS. PT IS SBA WITH TRANSFERS AND SELF PROPELS HIS WHEELCHAIR TO AND FROM THE DINING ROOM FOR MEALS. HOURLY ROUNDING AND FALL PRECAUTIONS IN PLACE.
[2018-07-31 19:15] VITALS: BP 119/42
--- NOTE | 2018-07-31 20:10 | NUR ---
SITTING UP IN WHEELCHAIR WATCHING TV. WENT TO THE BATHROOM VIA WHEELCHAIR. SCOOTED SELF TO STOOL RISER. DID OWN CLOTHING ADJUSTMENTS AND B[place]LEE CARE. HAD A LOOSE STOOL. DENIES DISCOMFORT. DECLINED OFFER OF A SNACK. TOOK POTASSIUM PILLS CUT IN HALF. REMAINDER OF MEDS TAKEN WHOLE WITH WATER. CALL LIGHT AND URINAL WITHIN REACH.
--- NOTE | 2018-08-01 05:49 | NUR ---
RESTED SOUNDLY. USED URINAL X ONE. NO COMPLAINTS VOICED. HOURLY ROUNDING IN PROGRESS.
[2018-08-01 06:10] VITALS: BP 126/59
[2018-08-01 08:00] VITALS: BP 126/59
[2018-08-01] MEDS ORDERED: POTASSIUM20 PO (12:33)
[2018-08-01] MEDS ORDERED: LASIX 40 MG TAB40 M1 PO (12:33)
[2018-08-01] MEDS ORDERED: IRON325 PO (12:33)
[2018-08-01] MEDS ORDERED: MAGNESIUM400 MG PO (12:33)
[2018-08-01 20:00] VITALS: BP 114/86
[2018-08-02 04:34] LABS: CALCIUM 9.2 mg/dL (8.5-10.1); CREATININE 0.8 mg/dL (0.6-1.3); MAGNESIUM 1.6 mg/dL (1.8-2.4); POTASSIUM 3.8 mmol/L (3.5-5.1)
[2018-08-02 04:43] LABS: ABSOLUTE BASOPHILS 0.1 thou/uL (0.0-0.2); ABSOLUTE EOSINOPHILS 0.5 thou/uL (0.0-0.7); ABSOLUTE LYMPHOCYTES 1.2 thou/uL (0.8-5.3); ABSOLUTE MONOCYTES 0.9 thou/uL (0.0-1.2); ABSOLUTE NEUTROPHILS 4.7 thou/uL (1.6-8.1); BASOPHILS 0.9 %; EOSINOPHILS 6.4 %; HEMATOCRIT 31.4 % (42.0-52.0); HEMOGLOBIN 10.2 gm/dL (14.0-18.0); LYMPHOCYTES 16.5 %; MCH 31.5 pg (26.0-34.0); MCHC 32.3 g/dL (28.0-37.0); MCV 97.5 fL (80.0-100.0); MONOCYTES 12.4 %; NUCLEATED RBCS 0 /100WBC; PLATELET COUNT* 192 thou/uL (150-400); POLYS 63.8 %; RBC 3.22 mil/uL (4.50-6.00); RDW-CV 16.8 % (10.5-14.5); WBC 7.4 thou/uL (4.0-11.0)
--- NOTE | 2018-08-02 05:21 | NUR ---
ASSUMED CARE AT 1930. PATIENT UP IN W/C PROPELING SELF IN ROOM UNTIL AROUND 2030. VOIDED PER TOILET. SCOOTS FROM W/C TO TOILET AND FROM W/C TO BED WITH SBA, GAIT BELT. LOOSE STOOL PER TOILET. DOES OWN HYGIENE AND CARES FOR STUMP PUMPMAN. TAKES PILLS WHOLE WITH WATER EXCEPT BREAKS POTASSIUM IN HALF. DENIES PAIN. DECLINED HS SNACK. HOURLY ROUNDS CONTINUE. BED ALARM ON. CALL LITE IN REACH.
[2018-08-02 06:21] VITALS: BP 113/61
[2018-08-02 08:06] VITALS: BP 103/51
[2018-08-02 20:00] VITALS: BP 110/46
--- NOTE | 2018-08-03 05:13 | NUR ---
Assumed patient care at 1900. Patient alert and oriented times four. Able to perform all self care, transfers and ambulation with stb assisst. No complaints of pain or discomfort noted. Stump world geography teacher in place. Hourly rounding and healthcare facility administrator charted as completed
[2018-08-03 07:35] VITALS: BP 101/53
[2018-08-03 10:18] VITALS: BP 101/53
[2018-08-03 13:08] VITALS: BP 101/53
--- NOTE | 2018-08-03 13:48 | NUR ---
ORDERS TO DISCHARGE HOME. DR CASILLAS SIGNED MED RECON. DR CONTRERAS GAVE VERBAL ORDER TO DISCHARGE HOME [facility]. WILL CONVEY THIS TO DAUGHTER AND SON WHEN THEY ARRIVE.
[2018-08-03 15:03] VITALS: BP 101/53
--- NOTE | 2018-08-03 15:19 | NUR ---
Pt to dc home to son's home with family care today. Pt/family preference for [facility]; CHIDI faxed referral and dc orders and final med list to [facility] and received acceptance of referral from [facility]. ph [phone]; fax [phone] Pt has DME from [facility] and pt has a follow up appt with surgeon at [facility] so they plan to receive stump protection and new cda teacher if needed at appt tomorrow. CHIDI faxed scripts to [facility] pharmacy and spoke with Cici in transitions at [facility] who informed pharmacist. CHIDI spoke with pt, pt dtr, and pt son who are all in agreement with plan and did not have any other concerns at this time. Pt children providing pt ride home.
--- NOTE | 2018-08-03 15:35 | NUR ---
PATIENT LEFT VIA FAMILY CAR WITHOUT INCIDENT. TRANSFERRED SELF WITH WALKER.
== END 2018-08-03 15:37 | disposition home health service (06) | DRG 432 ==
LOC: M.REH 13:15
PROVIDERS: Family Medicine; Internal Medicine; ADMIT Physical Medicine & Rehabilitation
DX: K70.30 Alcoholic cirrhosis of liver without ascites (principal); E43 Unspecified severe protein-calorie malnutrition; Z68.1 Body mass index [BMI] 19.9 or less, adult; R53.81 Other malaise; E11.9 Type 2 diabetes mellitus without complications; F43.10 Post-traumatic stress disorder, unspecified; I48.91 Unspecified atrial fibrillation; I10 Essential (primary) hypertension; R19.7 Diarrhea, unspecified; F10.20 Alcohol dependence, uncomplicated; M10.9 Gout, unspecified; D72.829 Elevated white blood cell count, unspecified; E87.6 Hypokalemia; E07.9 Disorder of thyroid, unspecified; K80.80 Other cholelithiasis without obstruction; E83.42 Hypomagnesemia; D50.9 Iron deficiency anemia, unspecified; D63.8 Anemia in other chronic diseases classified elsewhere; Z88.8 Allergy status to other drugs, medicaments and biological substances; Z79.82 Long term (current) use of aspirin; Z79.899 Other long term (current) drug therapy; Z89.611 Acquired absence of right leg above knee